=== PATIENT | female | born 2000 | race Caucasian/White ===

== ENCOUNTER 2018-10-04 16:07 | Emergency (ER) | payer OTHER, BC ==
[2018-10-04 16:24] VITALS: BP 111/61; PULSE 84; TEMP 97.8; BMI 25.8
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
[2018-10-05] MEDS ORDERED: IBUPROFEN 600 MG TABLET (FP) PO ONE (01:04)
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
[2018-10-05 17:48] LABS: URINE APPEARANCE SLCLOUDY; URINE BILIRUBIN NEGATIVE (<2.0 mg/dL); URINE COLOR LTYELLOW; URINE GLUCOSE (UA) NEGATIVE (NEGATIVE); URINE KETONE NEGATIVE (NEGATIVE); URINE LEUK ESTERASE NEGATIVE (NEGATIVE); URINE NITRITE NEGATIVE (NEGATIVE); URINE PROTEIN NEGATIVE (NEGATIVE); URINE UROBILINOGEN NEGATIVE mg/dL (0.2-1.0)
[2018-10-05 18:07] LABS: HCG,QUALITATIVE URINE Negative
== END 2018-10-05 01:10 | disposition home or self-care (01) ==
LOC: JER 16:07
DX: S09.8XXA Other specified injuries of head, initial encounter (principal); M54.2 Cervicalgia; M25.512 Pain in left shoulder; M25.572 Pain in left ankle and joints of left foot; V89.2XXA Person injured in unspecified motor-vehicle accident, traffic, initial encounter; Y92.488 Other paved roadways as the place of occurrence of the external cause; Y93.89 Activity, other specified; Y99.8 Other external cause status
CPT/HCPCS: 70450-TC; 72125-TC; 73030-TC-LT-FY; 73060-TC-LT-FY; 73090-TC-LT-FY; 73523-TC-FY; 73552-TC-LT-FY; 73590-TC-LT-FY; 81003; 84703; 99282-25